=== PATIENT | male | born 1960 | race Hispanic/Latino ===

== ENCOUNTER 2017-12-15 14:03 | Emergency (ER) | payer MEDICARE, MEDICAID ==
[2017-12-15 14:25] VITALS: BMI 25.7
--- NOTE | 2017-12-15 15:43 | ED PDOC ---
Arrival/HPI - General Chief Complaint: Lower Extremity Problem/Injury Time Seen by Provider: 12/15/17 14:30 Historian: Patient - History of Present Illness Narrative History of Present Illness (Text): 12/15/17 15:36 56 year old male, whose past medical history includes T4 paraplegia, presents to the emergency department for evaluation of left foot. Due to patient being paralyzed from waist down, he is unable to know when he has injured himself, but noticed it 3 days ago. He is unsure how he injured his foot. He noted pus in the area earlier today, but states it's been improving. Patient denies any fever, chills, chest pain, shortness of breath, nausea, vomiting, diarrhea, urinary symptoms, back pain, neck pain, headache, dizziness, or any other complaints. PMD: Dr. Gilbert 12/15/17 20:29 Time/Duration: Other (3 days) Symptom Onset: Sudden Symptom Course: Improving Activities at Onset: Light Context: Home Past Medical History - Provider Review Nursing Documentation Reviewed: Yes - Infectious Disease Hx of Infectious Diseases: None - Tetanus Immunization Tetanus Immunization: Unknown - Neurological HX Cerebrovascular Accident: Yes Hx Paralysis: Yes - Psychiatric Hx Depression: No Hx Emotional Abuse: No Hx Physical Abuse: No Hx Substance Use: No - Surgical History Other/Comment: 6 fused verte with scream T2-L2 - Anesthesia Hx Anesthesia: Yes Hx Anesthesia Reactions: No Hx Malignant Hyperthermia: No - Suicidal Assessment Feels Threatened In Home Enviroment: No Family/Social History - Physician Review Nursing Documentation Reviewed: Yes Family/Social History: No Known Family HX Smoking Status: Never Smoked Hx Alcohol Use: Yes Hx Substance Use: No Hx Substance Use Treatment: No Allergies/Home Meds Allergies/Adverse Reactions: Allergies acetaminophen [From Tylenol] Allergy (Verified 11/30/15 18:24) VOMITING amoxicillin trihydrate [From Augmentin] Allergy (Verified 11/30/15 18:24) ANAPHYLAXIS potassium clavulanate [From Augmentin] Allergy (Verified 11/30/15 18:24) ANAPHYLAXIS sulfamethoxazole [From Bactrim] Allergy (Verified 11/30/15 18:24) ANAPHYLAXIS trimethoprim [From Bactrim] Allergy (Verified 11/30/15 18:24) ANAPHYLAXIS Home Medications: Home Meds Medication Instructions Recorded Confirmed Oxybutynin [Oxybutynin Chloride] 5 mg PO TID 11/30/15 11/30/15 Pregabalin [Lyrica] 50 mg PO TID PRN 11/30/15 11/30/15 Review of Systems - Physician Review All systems were reviewed & negative as marked: Yes - Review of Systems Constitutional: absent: Fevers, Other (Chills) Cardiovascular: absent: Chest Pain Gastrointestinal: absent: Diarrhea, Nausea, Vomiting Genitourinary Male: absent: Dysuria, Frequency, Hematuria Musculoskeletal: Other (left foot injury and pus noted earlier). absent: Back Pain, Neck Pain Neurological: absent: Headache, Dizziness Physical Exam Vital Signs Reviewed: Yes Vital Signs Temp Pulse Resp BP Pulse Ox 12/15/17 14:28 98.8 F 92 H 18 143/75 95 Temperature: Afebrile Blood Pressure: Normal Pulse: Regular Respiratory Rate: Normal Appearance: Positive for: Well-Appearing, Non-Toxic, Comfortable Pain Distress: None Mental Status: Positive for: Alert and Oriented X 3 - Systems Exam Head: Present: Atraumatic, Normocephalic Pupils: Present: PERRL Extroacular Muscles: Present: EOMI Conjunctiva: Present: Normal Mouth: Present: Moist Mucous Membranes Neck: Present: Normal Range of Motion Respiratory/Chest: Present: Clear to Auscultation, Good Air Exchange. No: Respiratory Distress, Accessory Muscle Use Cardiovascular: Present: Regular Rate and Rhythm, Normal S1, S2. No: Murmurs Abdomen: No: Tenderness, Distention, Peritoneal Signs Back: Present: Normal Inspection Upper Extremity: Present: Normal Inspection. No: Cyanosis, Edema Lower Extremity: Present: NORMAL PULSES, Erythema (Mild erythema to the left mid foot medial portion, 1x1cm. No streaking noted. ), Neurovascularly Intact, Capillary Refill < 2 s, Other (No fluctuance, no crepitus, no tenderness). No: Edema, CALF TENDERNESS, Cyanosis, Edith's Sign, Tenderness, Swelling, Deformity Neurological: Present: GCS=15, CN II-XII Intact, Speech Normal Skin: Present: Warm, Dry, Normal Color. No: Rashes Psychiatric: Present: Alert, Oriented x 3, Normal Insight, Normal Concentration Medical Decision Making ED Course and Treatment: 12/15/17 15:36 Impression: 56 year old male presents for evaluation of injury approximately 3 days ago to the left foot with reportedly pus. Patient states it has been improving. No pus noted on my exam. No fluctuance or crepitus. Mild cellulitis. Plan: -- Reassess and disposition Prior Visits: Notes and results from previous visits were reviewed. Progress Notes: 12/15/17 15:45 On re-evaluation, patient is in no acute distress. I have discussed the plan with the patient, who expresses understanding. Patient in agreement with plan to be discharged home with Clindamycin. Patient is stable for discharge. Patient was instructed to follow up with physician or return if symptoms worsen or new concerning symptoms arise. - Scribe Statement The provider has reviewed the documentation as recorded by the Deshaun Hodges Provider Scribe Attestation: All medical record entries made by the Scribe were at my direction and personally dictated by me. I have reviewed the chart and agree that the record accurately reflects my personal performance of the history, physical exam, medical decision making, and the department course for this patient. I have also personally directed, reviewed, and agree with the discharge instructions and disposition. Disposition/Present on Arrival - Present on Arrival Any Indicators Present on Arrival: Yes History of DVT/PE: No History of Uncontrolled Diabetes: No Urinary Catheter: No History of Decub. Ulcer: No History Surgical Site Infection Following: None - Disposition Have Diagnosis and Disposition been Completed?: Yes Diagnosis: Cellulitis Disposition: HOME/ ROUTINE Disposition Time: 15:45 Condition: GOOD Discharge Instructions (ExitCare): Cellulitis (Skin Infection), Adult (DC), Cellulitis (ED) Additional Instructions: SKYLA MARINO, thank you for letting us take care of you today. Your provider was Jaxson Sanders and you were treated for LEFT FOOT INFECTION. The emergency medical care you received today was directed at your acute symptoms. If you were prescribed any medication, please fill it and take as directed. It may take several days for your symptoms to resolve. Return to the Emergency Department if your symptoms worsen, do not improve, or if you have any other problems. Please contact your doctor or call one of the physicians/clinics you have been referred to that are listed on the Patient Visit Information form that is included in your discharge packet. Bring any paperwork you were given at discharge with you along with any medications you are taking to your follow up visit. Our treatment cannot replace ongoing medical care by a primary care provi jermain outside of the emergency department. Thank you for allowing the [facility] team to be part of your care today. If you had an X-Ray or CT scan: A Radiologist will review the ED reading if any change in treatment is needed we will contact you. If you had a blood, urine, or wound culture: It will take several days for the results, if any change in treatment is needed we will contact you. If you had an STI test: It will take 48 hours for the results. Please call after 1 week if you have not heard back. Prescriptions: Clindamycin [Cleocin] 450 mg PO TID 5 Days #75 cap Referrals: Carson Gilbert MD [Primary Care Provider] - Follow up with primary Forms: Pyreg (Vietnamese)
[2017-12-15 15:50] VITALS: BP 134/76; PULSE 84; RESP 16; TEMP 98.2; O2SAT 96
== END 2017-12-15 15:50 | disposition home or self-care (01) ==
LOC: ED 14:03
DX: L03.116 Cellulitis of left lower limb (principal); G82.20 Paraplegia, unspecified